=== PATIENT | male | born 1995 | race Two or more races ===

== ENCOUNTER 2024-06-27 22:02 | Emergency (ER) | payer MEDICAID, SELFPAY ==
[2024-06-27 22:20] VITALS: BP 150/77; PULSE 99; RESP 20; TEMP 36.5; O2SAT 99
--- NOTE | 2024-06-27 22:49 | PD.EDRME ---
Rapid Medical Screening Exam [facility] Arrival date/time: 06/27/24 22:02 28M with history of DM w/ DKA and drug/alcohol use presents to ED with 1 day of ab pain, N/V, and some SOB. Chief Complaint: Nausea/Vomiting/Diarrhea Vital signs: Vital Signs Temperature 97.7 F 06/27/24 22:20 Pulse Rate 99 06/27/24 22:20 Respiratory Rate 20 06/27/24 22:20 Blood Pressure 150/77 H 06/27/24 22:20 Pulse Oximetry (%) 99 06/27/24 22:20 Oxygen Delivery Method Room Air 06/27/24 22:20
[2024-06-27 23:16] LABS: Base Excess, Venous 1 (-3-3); O2 Saturation, Venous 61 % (96-97); PCO2, Venous 32 mmHg (36-56); PO2, Venous 30 mmHg (15-58); pH, Venous 7.47 (7.33-7.66)
[2024-06-27 23:17] LABS: Basophils % (Auto) 0 % (0-2.5); Eosinophils % (Auto) 0 % (0-10); Hemoglobin 16.3 g/dL (13.5-16.0); Immature Granulocytes % (Auto) 0 % (0-0); Immature Granulocytes Auto 0.02 Thou/mm3 (0.00-0.00); Lymphocytes # (Auto) 0.4 Thou/mm3 (1.0-4.8); Lymphocytes % (Auto) 3 % (10-50); Mean Corpuscular HGB Conc 34.7 g/dl (31.0-37.0); Mean Corpuscular Volume 86 fL (80-100); Monocytes # (Auto) 0.4 Thou/mm3 (0.0-0.8); Monocytes % (Auto) 3 % (0-12); Neutrophils # (Auto) 11.5 Thou/mm3 (1.8-7.7); Neutrophils % (Auto) 93 % (37-80); Nucleated Red Blood Cell % 0 /100 WBC (0); Platelet Count 189 Thou/mm3 (140-440); RDW Standard Deviation 38.9 fL (35.1-43.9); Red Blood Count 5.44 Miln/mm3 (4.50-5.90); White Blood Count 12.4 Thou/mm3 (3.8-10.6)
[2024-06-27 23:50] LABS: Alanine Aminotransferase 32 U/L (10-49); Albumin, Serum 4.9 gm/dL (3.5-5.0); Alkaline Phosphatase 167 U/L (46-116); Anion Gap 12 (7-16); Aspartate Amino Transferase 18 U/L (0-34); BUN/Creatinine Ratio 19 Ratio (12-20); Bilirubin,Total 1.3 mg/dL (0.3-1.2); Blood Urea Nitrogen 19 mg/dL (9-23); Calcium 9.8 mg/dL (8.3-10.6); Calcium (Corrected) 9.8 mg/dL (8.5-10.1); Carbon Dioxide 22.7 mMol/L (20.0-31.0); Chloride 103 mMol/L (98-107); Globulin 2.5 gm/dL (2.3-3.5); Glucose 243 mg/dL (74-106); Lipase 25 U/L (12-53); Osmolality,Calculated 285 (275-295); Potassium 4.1 mMol/L (3.4-5.1); Sodium 138 mMol/L (136-145); Total Protein 7.4 gm/dL (5.7-8.2); eGFR > 60 See Note
[2024-06-27 23:57] LABS: Beta Hydroxybutyrate 1.6 mmol/L (<0.6)
[2024-06-28 00:41] LABS: Collection Type, Urine Clean Catch; Squamous Epithelial Cell,Urine 0 /hpf (0-5)
[2024-06-28 00:58] LABS: Bilirubin,Urine Negative (Negative); Blood,Urine Negative (Negative); Clarity,Urine Clear (Clear/Hazy); Color,Urine Yellow (Lt Yel-Yel); Glucose, Urine 4+ (Negative); Ketones,Urine 4+ (Negative); Leukocyte Esterase,Urine Negative (Negative); Nitrite,Urine Negative (Negative); PH,Urine 7.5 (5.0-7.0); Protein,Urine 2+ (Neg - Trace); RBC,Urine 15 /hpf (0-3); Specific Gravity,Urine 1.034 (1.001-1.035); Urobilinogen,Urine Negative mg/dL (0.0-1.0); WBC,Urine 1 /hpf (0-5)
[2024-06-28] MEDS: ONDANSETRON ODT 4 MG TABRAP PO (01:34)
[2024-06-28] MEDS: INSULIN HUM REGULAR 1 UNIT/0.01 ML (PER UNIT) 10 UNIT SC (01:34)
[2024-06-28 01:45] VITALS: BP 133/72; PULSE 100; RESP 18; TEMP 36.8; O2SAT 99
--- NOTE | 2024-06-28 01:51 | PD.EDNV ---
Nausea/Vomit./Diarrhea-RME/HPI General Chief complaint: Nausea/Vomiting/Diarrhea Stated complaint: VOMITING Arrival date/time: 06/27/24 22:02 RME / HPI RME / HPI Narrative: 06/27/24 22:02 28M with history of DM w/ DKA and drug/alcohol use presents to ED with 1 day of ab pain, N/V, and some SOB. This section includes all my notes and documentations, including HPI, PE, and ED course. Elver Still MD HPI: 28-year-old male here with about 24-hour history of vomiting and diarrhea. Has type I DM. Concerned about DKA. No other complaints. ROS: All negative except as documented in HPI. Physical Exam: General: Alert and oriented. No acute distress when remaining still. Eyes: Conjunctivae and lids clear. ENT: No nasal congestion. Neck: Supple. Heart: RRR. Lungs: No respiratory distress. Good air movement. No rhonchi, wheezing, rales. Abdomen: Soft and nontender. Normal bowel sounds. No distension. No rebound or guarding. Back: No CVA tenderness. Skin: Warm and dry. Neuro: Alert and oriented X 3. I reviewed all diagnostic test results. Blood tests and urine tests remarkable for anion gap 12 and Glu 243. At this point, diagnoses include hyperglycemia without DKA. Treatment here included Zofran and insulin. Significant improvement noted. Recommended supportive care. Based on my best medical judgment, made decision no further evaluation or treatment indicated at this time. Patient understands and agrees to the discharge instructions customized and printed, see below. Discharge Instructions from Dr. Still: 1. After evaluation, you are not in DKA. But you are dehydrated and may go into DKA without proper treatment. 2. Make sure you follow the insulin regimen instructed by your private doctors. 3. Zofran for nausea/vomiting.? Increase oral fluid and maintain clear urine.? If dark or yellow, increase oral fluid. 4. Do not take any medications to stop diarrhea if you develop diarrhea.? But try to replenish the fluid and electrolytes you are losing. 5. Some good choices are water (but not only water because it will cause electrolyte abnormalities), sports drinks like Gatorade (with less sugar content), coconut water, chicken stock, and other fluid with electrolytes (like Pedialyte). 6. See a private doctor on 07/01/2024 for recheck and further care. 7. Seek immediate medical care with worsening or with any concerns. Elver Still MD Related Data Home Medications ?Medication ?Instructions ?Recorded ?Confirmed insulin lispro 200 unit/mL (3 mL) See Rx Instructions .Route .COMPLEX 05/30/19 05/30/19 subcutaneous pen (Humalog KwikPen U-200 Insulin) Previous Rx's ?Medication ?Instructions ?Recorded insulin glargine 100 unit/mL (3 30 unit (0.3 mL) subcut QDAY #0 mL 05/30/19 mL) subcutaneous pen (Lantus Solostar U-100 Insulin) ondansetron 4 mg disintegrating 4 mg PO TID PRN nausea and 06/28/24 tablet vomiting 5 days #10 tabs Allergies Allergy/AdvReac Type Severity Reaction Status Date / Time No Known Allergies Allergy Verified 05/27/19 23:38 Course Quality Measures none Orders Category Date Time Status Blood glucose [Bedside Blood Glucose] NOW Care 06/27/24 22:10 Completed Alcohol, Blood Medical Stat Lab 06/27/24 23:02 Completed Beta Hydroxybutyrate Stat Lab 06/27/24 23:02 Completed CBC Stat Lab 06/27/24 23:02 Completed CMP [Comprehensive Metabolic Panel] Stat Lab 06/27/24 23:02 Completed Drug Screen,Urine Stat Lab 06/27/24 00:30 Received Lipase Stat Lab 06/27/24 23:02 Completed Urinalysis Stat Lab 06/27/24 00:30 Completed VBG [Venous Blood Gas] Stat Lab 06/27/24 23:02 Completed Insulin Regular Med 06/28/24 01:15 Discontinued 10 unit SC X1 ONE Ondansetron Odt [Zofran Odt] Med 06/28/24 01:11 Discontinued 4 mg PO X1 ONE Vital Signs Vital signs: Vital Signs Temperature 97.7 F 06/27/24 22:20 Pulse Rate 99 06/27/24 22:20 Respiratory Rate 20 06/27/24 22:20 Blood Pressure 150/77 H 06/27/24 22:20 Pulse Oximetry (%) 99 06/27/24 22:20 Oxygen Delivery Method Room Air 06/27/24 22:20 Nausea/Vomiting/Diarrhea Patient data External records reviewed:: [facility] previous records Clinical information provided by:: patient Social determinants that could affect healthcare access:: none Patient has the following chronic illnesses:: DM How is presenting disease/condition affected by chronic disease/condition?: exacerbated by Evaluation data The following diagnostics were reviewed and interpreted by me:: lab results Lab and/or radiology exams considered but not ordered:: None Interpretation Summary: Hyperglycemia without DKA Medications / Prescriptions Medications / Prescriptions considered but not ordered:: None Medication administrations:: Medication Administration History Discontinued Medications Insulin Human Regular (Insulin Hum Regular 1 Unit/0.01 Ml (Per Unit)) 10 unit SC X1 ONE Stop: 06/28/24 01:16 Last Admin: 06/28/24 01:34 Dose: 10 unit Documented By: NINO Co-signed By: LATRELL Ondansetron HCl (Ondansetron Odt 4 Mg Tabrap) 4 mg PO X1 ONE; Protocol Stop: 06/28/24 01:12 Last Admin: 06/28/24 01:34 Dose: 4 mg Documented By: NINO Zofran and insulin Consultations Consultation(s) initiated? (list below): No Diagnosis Nausea Differential Diagnosis: traveler's diarrhea, food poisoning, gastroenteritis, dehydration and other (DKA) Most likely diagnosis given after review of the tests above:: Hyperglycemia without DKA Admission Indicated Admission indicated?: not indicated Explain why admission is indicated or not indicated:: Admission criteria not Admission Request Was there a request for admission?: No Disposition Plan Disposition Plan: Discharge Discharge Attestation Discharge Attestation: The patient and all family members were given an opportunity to ask questions and understood the discharge instructions. Discharge instructions specifically effects, indications for sooner follow up or return to the emergency department, and the expected course of current diagnosis. Patient condition: Stable Discharge Plan Plan Patient Disposition: HOME (Self Care) Prescriptions/Referrals Prescriptions/Med Rec: New ondansetron 4 mg tablet,disintegrating 4 mg PO TID PRN (Reason: nausea and vomiting) 5 Days Qty: 10 0RF No Action Humalog KwikPen Insulin 200 unit/mL (3 mL) Insulin Pen See Rx Instructions .ROUTE .COMPLEX Rx Instructions: per patient does not know the scale for unit dosing Lantus Solostar U-100 Insulin 100 unit/mL (3 mL) Insulin Pen 30 unit SUBCUT QDAY Qty: 0 0RF Rx Instructions: every night Referrals: Lacy Kolb FNP [Primary Care Provider] - In 1 week Problem List Clinical Impression: Hyperglycemia, Dehydration Patient/Caregiver Discharge Instructions Discharge Activity: activity as tolerated Education Materials: ED Diabetes with High Blood Sugar, ED Dehydration (Adult) Additional Instructions: Discharge Instructions from Dr. Still: 1. After evaluation, you are not in DKA. But you are dehydrated and may go into DKA without proper treatment. 2. Make sure you follow the insulin regimen instructed by your private doctors. 3. Zofran for nausea/vomiting.? Increase oral fluid and maintain clear urine.? If dark or yellow, increase oral fluid. 4. Do not take any medications to stop diarrhea if you develop diarrhea.? But try to replenish the fluid and electrolytes you are losing. 5. Some good choices are water (but not only water because it will cause electrolyte abnormalities), sports drinks like Gatorade (with less sugar content), coconut water, chicken stock, and other fluid with electrolytes (like Pedialyte). 6. See a private doctor on 07/01/2024 for recheck and further care. 7. Seek immediate medical care with worsening or with any concerns. Print Language: German Stand Alone Forms: Avelina Award Info., Work/School Release, Patient Portal Info Letter
[2024-06-28 02:24] LABS: Amphetamine/Methamp Scrn,U Negative (Negative); Barbiturate Screen,Urine Negative (Negative); Benzodiazepines Screen,Urine Negative (Negative); Benzoylecgonine Screen, Ur Negative (Negative); Fentanyl Screen,Urine Negative (Negative); Opiate Screen,Urine Negative (Negative); THC Screen,Urine Positive (Negative)
== END 2024-06-28 01:46 | disposition home or self-care (01) ==
PROVIDERS: Physician Assistant; Emergency Provider Emergency Medicine; PCP Nurse Practitioner Family
DX: E86.0 Dehydration (principal); E10.65 Type 1 diabetes mellitus with hyperglycemia; Z79.4 Long term (current) use of insulin
CPT/HCPCS: 36415; 80053; 80307; 80320; 81001; 82010; 82803; 83690; 85025; 96372; 99283; J1815; Q0162; G0480